=== PATIENT | male | born 1940 | race Hispanic/Latino ===

== ENCOUNTER 2018-01-03 09:31 | Day surgery (SDC) | payer OTHER ==
[~2018-01-03] VITALS: Ht 170.2 cm; Wt 79.0 kg
[~2018-01-03 09:31] MED LIST: ATOR40TA69 PO; LEVO50TA4 PO; MO8B PO; MONT10TA21 PO; SODIUM CHLORIDE 0.9% 1000ML 1,000 ML IV ONE; VALS160T2 PO
[2018-01-03 09:32] VITALS: BP 161/80
[2018-01-03] MEDS ORDERED: PROPOFOL 10 MG/ML 20ML VIAL IV ONE (10:41)
[2018-01-03 11:05] VITALS: BP 86/50
== END 2018-01-03 11:50 | disposition home or self-care (01) ==
LOC: ENDO 09:31 → DAH 09:31 → ENDO 11:50
PROVIDERS: ATTEND Internal Medicine Gastroenterology
DX: D12.5 Benign neoplasm of sigmoid colon (principal); K57.30 Diverticulosis of large intestine without perforation or abscess without bleeding; I10 Essential (primary) hypertension; N40.0 Benign prostatic hyperplasia without lower urinary tract symptoms; M19.90 Unspecified osteoarthritis, unspecified site; E78.4 Other hyperlipidemia; E03.8 Other specified hypothyroidism; Z79.899 Other long term (current) drug therapy
CPT/HCPCS: 45380; 88305; 93005; A4606; J2704; J7030

== ENCOUNTER → 2021-05-14 | Outpatient (CLI) | payer OTHER ==
[~2021-05-14] MED LIST changes: +IBUP-1493 PO; -MO8B PO; -SODIUM CHLORIDE 0.9% 1000ML 1,000 ML IV ONE
== END | disposition home or self-care (01) ==
LOC: RAH 08:58
PROVIDERS: ATTEND Internal Medicine Gastroenterology
DX: K76.89 Other specified diseases of liver (principal); K76.0 Fatty (change of) liver, not elsewhere classified
CPT/HCPCS: 76700